=== PATIENT | female | born 1945 | race Caucasian/White ===

== ENCOUNTER 2019-05-01 06:26 | Day surgery (SDC) | payer OTHER ==
[~2019-05-01 06:26] MED LIST: ATORVASTATIN CA10 MG PO; CALTRATE 600 +1 EACH PO; COZAAR25 MG PO; DULOXETINE HCL30 MG PO; GABAPENTIN100 MG PO; GRALISE600 MG PO; LEVO-T25 MCG PO; METOPROLOL SUCC25 MG PO; VOLTAREN-XR100 MG PO; ZANTAC 7575 MG PO
== END 2019-05-01 12:00 | disposition home or self-care (01) ==
LOC: CIR.AMB 06:26
DX: M48.061 Spinal stenosis, lumbar region without neurogenic claudication (principal)

== ENCOUNTER 2019-10-23 06:43 | Day surgery (SDC) | payer OTHER | END 2019-10-23 13:03 | disposition home or self-care (01) | LOC: CIR.AMB 06:43 → ADM 11:15 → CIR.AMB 11:15 | DX: M54.16 Radiculopathy, lumbar region (principal); M99.63 Osseous and subluxation stenosis of intervertebral foramina of lumbar region ==